=== PATIENT | male | born 1980 | race Caucasian/White ===

== ENCOUNTER 2022-04-03 04:44 | Emergency (ER) | payer OTHER ==
[2022-04-03] MEDS ORDERED: Ondansetron 4 MG/2 ML SDV IVPUSH ONE ×2 (05:49→07:25)
[2022-04-03] MEDS ORDERED: Sodium Chloride 0.9% 1,000 ML IV ONE (05:49)
[2022-04-03] MEDS ORDERED: Morphine 4 MG/ML Syringe IVPUSH ONE ×2 (05:49→06:45)
[2022-04-03] MEDS ORDERED: Morphine 4 MG/ML Syringe ONE (06:40)
[2022-04-03 06:44] LABS: CARBON DIOXIDE,CO2 25.3 mmol/L (21.0-32.0)
[2022-04-03] MEDS ORDERED: HYDROmorphone 1 MG/ML Syringe IVPUSH ONE ×2 (07:24→07:25)
[2022-04-03 09:40] VITALS: BP 132/68; PULSE 83
== END 2022-04-03 09:38 | disposition home or self-care (01) ==
LOC: MW.ED 04:44
DX: S82.852A Displaced trimalleolar fracture of left lower leg, initial encounter for closed fracture (principal); J45.909 Unspecified asthma, uncomplicated; E03.9 Hypothyroidism, unspecified; Z20.822 Contact with and (suspected) exposure to COVID-19; X50.1XXA Overexertion from prolonged static or awkward postures, initial encounter; Y92.89 Other specified places as the place of occurrence of the external cause; Y99.0 Civilian activity done for income or pay
CPT/HCPCS: 27818; 36415; 73590; 73600; 73610; 80053; 85025; 85610; 85730; 87635; 96361; 96374; 96375; 96376; 99283; J1170; J2270; J2405; J7030; U0002

== ENCOUNTER 2022-04-06 10:01 | Day surgery (SDC) | payer OTHER ==
[~2022-04-06 10:01] MED LIST: Lactated Ringers 1,000 ML IV SCH
[2022-04-06] MEDS ORDERED: Naloxone 0.4 MG/ML SDV IVPUSH PRN (10:53)
[2022-04-06] MEDS ORDERED: Morphine 2 MG/ML SYRINGE IVPUSH PRN (10:53)
[2022-04-06] MEDS ORDERED: HYDROmorphone 1 MG/ML Syringe IVPUSH PRN (10:53)
[2022-04-06] MEDS ORDERED: Metoclopramide 10 MG/2 ML SDV IVPUSH PRN (10:53)
[2022-04-06] MEDS ORDERED: Ondansetron 4 MG/2 ML SDV IVPUSH PRN (10:53)
[2022-04-06] MEDS ORDERED: fentaNYL 50 MCG/ML SDV IVPUSH PRN (10:53)
[2022-04-06] MEDS ORDERED: Albuterol 0.083% 2.5 MG/3 ML Neb Soln NEB PRN (10:53)
[2022-04-06] MEDS ORDERED: fentaNYL 100 MCG/2 ML SDV ONE (11:28)
[2022-04-06] MEDS ORDERED: Propofol 200 MG/20 ML SDV ONE ×5 (11:28→14:20)
[2022-04-06] MEDS ORDERED: Dexmedetomidine 200 MCG/2 ML SDV ONE (11:29)
[2022-04-06] MEDS ORDERED: Lidocaine 2% 5 ML SDV ONE (11:29)
[2022-04-06] MEDS ORDERED: Bupivacaine 0.5% 30 ML SDV ONE (11:45)
[2022-04-06] MEDS ORDERED: Bupivacaine 0.25%/EPINEPHrine 1:200,000 10 ML SDV ONE (11:46)
[2022-04-06] MEDS ORDERED: ceFAZolin 2 GM in Premix Bag 1 BAG IV SCH (12:00)
[2022-04-06] MEDS ORDERED: Phenylephrine HCl In 0.9% NaCl 1 MG/10 ML Vial ONE ×3 (12:28→13:53)
[2022-04-06] MEDS ORDERED: ceFAZolin 1 GM Vial ONE (12:32)
[2022-04-06 16:19] VITALS: BP 102/63; PULSE 77
== END 2022-04-06 16:05 | disposition home or self-care (01) ==
LOC: MW.SDS 10:01
PROVIDERS: ATTEND Orthopaedic Surgery
DX: S82.852A Displaced trimalleolar fracture of left lower leg, initial encounter for closed fracture (principal); S93.492A Sprain of other ligament of left ankle, initial encounter; J45.20 Mild intermittent asthma, uncomplicated; F17.210 Nicotine dependence, cigarettes, uncomplicated; E07.9 Disorder of thyroid, unspecified; K21.9 Gastro-esophageal reflux disease without esophagitis; E03.9 Hypothyroidism, unspecified; Z79.899 Other long term (current) drug therapy; Z88.5 Allergy status to narcotic agent; Z98.890 Other specified postprocedural states; W19.XXXA Unspecified fall, initial encounter
CPT/HCPCS: 27822; J0690; J2704; J3010; J3490; J7120; 01480; 64450; 76942

== ENCOUNTER 2022-04-26 18:42 | Emergency (ER) | payer BC, OTHER ==
[2022-04-26 23:04] LABS: C. TRACHOMATIS BY PCR NOT DETECTED; N. GONORRHOEAE BY PCR NOT DETECTED
[2022-04-27] VITALS: BP 143/86; PULSE 81
== END 2022-04-26 23:30 | disposition home or self-care (01) ==
LOC: MW.ED 18:42
DX: Z00.00 Encounter for general adult medical examination without abnormal findings (principal); J45.909 Unspecified asthma, uncomplicated; K21.9 Gastro-esophageal reflux disease without esophagitis; E03.9 Hypothyroidism, unspecified; Z88.6 Allergy status to analgesic agent; Z88.5 Allergy status to narcotic agent; Z79.82 Long term (current) use of aspirin; Z79.899 Other long term (current) drug therapy
CPT/HCPCS: 81001; 87491; 87591; 99283